=== PATIENT | female | born 1980 | race Caucasian/White ===

== ENCOUNTER 2019-03-11 18:27 | Emergency (ER) | payer OTHER ==
[~2019-03-11] VITALS: Ht 170.2 cm; Wt 90.7 kg
[2019-03-11] MEDS ORDERED: ATIVAN0.5 M1 PO (18:39)
[2019-03-11] MEDS ORDERED: NEURONTIN300 MG PO (18:39)
[2019-03-11] MEDS ORDERED: COZAAR 25 MG TA25 M1 PO (18:39)
[2019-03-11 19:10] LABS: ABSOLUTE BASOPHILS 0.1 thou/uL (0.0-0.2); ABSOLUTE EOSINOPHILS 0.2 thou/uL (0.0-0.7); ABSOLUTE LYMPHOCYTES 3.2 thou/uL (0.8-5.3); ABSOLUTE MONOCYTES 0.6 thou/uL (0.0-1.2); BASOPHILS 0.7 %; EOSINOPHILS 1.9 %; HEMATOCRIT 38.2 % (37.0-47.0); MCH 29.4 pg (26.0-34.0); MCV 86.6 fL (80.0-100.0); MONOCYTES 5.6 %; MPV 8.7 fl. (7.2-11.1); NUCLEATED RBCS 0 /100WBC; PLATELET COUNT* 313 thou/uL (150-400); POLYS 62.8 %; RBC 4.41 mil/uL (4.20-5.00); RDW-CV 13.5 % (10.5-14.5); WBC 11.2 thou/uL (4.0-11.0)
[2019-03-11 19:17] LABS: CALCIUM 8.9 mg/dL (8.5-10.1); CREATININE 1.3 mg/dL (0.6-1.3); POTASSIUM 3.9 mmol/L (3.5-5.1)
[2019-03-11 19:21] LABS: ALBUMIN 3.9 g/dL (3.4-5.0); TOTAL BILIRUBIN 0.2 mg/dL (<0.1-1.0); TOTAL PROTEIN 7.8 g/dL (6.4-8.2)
[2019-03-11] MEDS ORDERED: DOXYCYCLINE 10100 MG PO (20:03)
[2019-03-11 20:45] LABS: URINE BILIRUBIN NEGATIVE (Negative); URINE BLOOD NEGATIVE (Negative); URINE CLARITY CLEAR; URINE COLOR YELLOW; URINE GLUCOSE-RANDOM NEGATIVE (Negative); URINE KETONES NEGATIVE (Negative); URINE LEUKOCYTES-REFLEX NEGATIVE (Negative); URINE NITRITE-REFLEX NEGATIVE (Negative); URINE PROTEIN NEGATIVE (Negative); URINE SPECIFIC GRAVITY <= 1.005 (1.005-1.030); URINE UROBILINOGEN 0.2 E.U./dl (0.2-1.0)
[2019-03-11 21:15] VITALS: BP 163/95
--- NOTE | 2019-03-12 12:50 | EKG ---
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
== END 2019-03-11 21:15 | disposition home or self-care (01) ==
LOC: M.ERS 18:27
PROVIDERS: Nurse Practitioner Family
DX: R19.7 Diarrhea, unspecified (principal); J32.9 Chronic sinusitis, unspecified; I10 Essential (primary) hypertension; Z88.1 Allergy status to other antibiotic agents; Z88.2 Allergy status to sulfonamides

== ENCOUNTER 2021-01-25 08:47 | Inpatient (IN) | payer OTHER, MEDICAID ==
[~2021-01-25] VITALS: Ht 170.2 cm; Wt 90.7 kg
[~2021-01-25 08:47] MED LIST: ATIVAN0.5 M1 PO; COZAAR 25 MG TA25 M1 PO; DOXYCYCLINE 10100 MG PO; NEURONTIN300 MG PO
[2021-01-25 08:52] VITALS: BP 136/65
[2021-01-25] MEDS ORDERED: CRESTOR5 MG PO (08:55)
[2021-01-25] MEDS ORDERED: LOSARTAN-HCTZ1 EAC3 PO (08:55)
[2021-01-25 09:26] LABS: ABSOLUTE LYMPHOCYTES 1.4 thou/uL (0.8-5.3); ABSOLUTE NEUTROPHILS 4.6 thou/uL (1.6-8.1); HEMOGLOBIN 11.3 gm/dL (12.0-15.0); NUCLEATED RBCS 0 /100WBC; RDW-CV 14.4 % (10.5-14.5); WBC 6.4 thou/uL (4.0-11.0)
[2021-01-25 09:28] LABS: ABSOLUTE MONOCYTES 0.4 thou/uL (0.0-1.2); BASOPHILS 0.2 %; EOSINOPHILS 0.1 %; HEMATOCRIT 32.3 % (37.0-47.0); LYMPHOCYTES 22.3 %; MCH 29.6 pg (26.0-34.0); MCV 84.6 fL (80.0-100.0); MONOCYTES 5.8 %; MPV 8.6 fl. (7.2-11.1); PLATELET COUNT* 252 thou/uL (150-400); POLYS 71.6 %; RBC 3.82 mil/uL (4.20-5.00)
[2021-01-25 09:40] LABS: CREATININE 1.1 mg/dL (0.6-1.3); POTASSIUM 3.1 mmol/L (3.5-5.1)
[2021-01-25 09:56] LABS: TOTAL BILIRUBIN 0.8 mg/dL (<0.1-1.0); TOTAL PROTEIN 7.3 g/dL (6.4-8.2)
[2021-01-25 14:20] VITALS: BP 134/70
--- NOTE | 2021-01-25 15:31 | EKG ---
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 : 1980 Requested By: Joe Clark Order Number: [id number] MD: Rolf Borrero Measurements Intervals [place] Rate: 95 P: 35 IA: 148 QRS: 14 QRSD: 94 T: 6 QT: 373 QTc: 469 Interpretive Statements Sinus rhythm Borderline T wave abnormalities Baseline wander in lead(s) II Compared to ECG 03/11/2019 19:00:23 T-wave abnormality now present Electronically Signed On 01-25-2021 15:31:06 GAMING DEALER by Rolf Borrero [email or web address] <ELECTRONICALLY SIGNED> By: Rolf Borrero MD, [facility] 01/25/21 1531 Rolf Borrero MD, [facility] /EPI
[2021-01-25 18:24] VITALS: BP 145/69
[2021-01-25 22:00] VITALS: BP 117/75
[2021-01-26 02:15] VITALS: BP 124/72
[2021-01-26 03:56] LABS: ALBUMIN 2.6 g/dL (3.4-5.0); CALCIUM 7.7 mg/dL (8.5-10.1); CREATININE 1.1 mg/dL (0.6-1.3); MAGNESIUM 2.2 mg/dL (1.8-2.4); POTASSIUM 3.5 mmol/L (3.5-5.1); TOTAL BILIRUBIN 0.7 mg/dL (<0.1-1.0); TOTAL PROTEIN 6.9 g/dL (6.4-8.2)
[2021-01-26 05:32] LABS: HEMATOCRIT 30.8 % (37.0-47.0); HEMOGLOBIN 10.7 gm/dL (12.0-15.0); MCH 29.5 pg (26.0-34.0); MCHC 34.6 g/dL (28.0-37.0); MCV 85.2 fL (80.0-100.0); MPV 9.1 fl. (7.2-11.1); RBC 3.62 mil/uL (4.20-5.00); WBC 7.2 thou/uL (4.0-11.0)
[2021-01-26 06:25] VITALS: BP 125/65
[2021-01-26 07:04] LABS: INFLUENZA A ANTIGEN Negative (Negative); INFLUENZA B ANTIGEN Negative (Negative)
[2021-01-26 10:15] VITALS: BP 113/70
[2021-01-26 11:24] LABS: PCO2 33.9 mmHg (35.0-45.0); PO2 73.5 mmHg (75.0-100.0); pH 7.515 (7.340-7.450)
[2021-01-26 13:50] VITALS: BP 126/69
[2021-01-26 15:35] VITALS: BP 143/78
[2021-01-26 20:00] VITALS: BP 117/68
[2021-01-27] VITALS (7 sets, daily range): BP systolic 122–137; BP diastolic 63–83
[2021-01-27 05:20] LABS: HEMATOCRIT 31.4 % (37.0-47.0); HEMOGLOBIN 10.9 gm/dL (12.0-15.0); MCH 29.7 pg (26.0-34.0); MCHC 34.8 g/dL (28.0-37.0); MCV 85.2 fL (80.0-100.0); MPV 8.7 fl. (7.2-11.1); RBC 3.69 mil/uL (4.20-5.00); RDW-CV 14.1 % (10.5-14.5); WBC 9.8 thou/uL (4.0-11.0)
[2021-01-27 05:38] LABS: ALBUMIN 2.8 g/dL (3.4-5.0); MAGNESIUM 2.5 mg/dL (1.8-2.4); POTASSIUM 3.7 mmol/L (3.5-5.1); TOTAL BILIRUBIN 0.6 mg/dL (<0.1-1.0); TOTAL PROTEIN 6.9 g/dL (6.4-8.2)
--- NOTE | 2021-01-27 22:17 | CON ---
[address] [address] CONSULTATION Name: CARLENE GIBBS Room: [address] IN [facility]#: [id number] Admission: 01/25/21 Attend Phys: Solange Sheppard MD Discharge: Date of : 78 Report #: [id number] THIS REPORT FOR: cc: Pancho Whalen Ghaison F. DO Pervez, Adeel MD ~ DATE OF CONSULTATION: 01/27/2021 REQUESTING PHYSICIAN: Solange Sheppard MD INDICATION FOR CONSULTATION: Acute hypoxemic respiratory failure secondary to COVID-19. HISTORY OF PRESENT ILLNESS: A 40-year-old female. She is a lifetime nonsmoker. She only recently received the first dose of her COVID-19 vaccine. The patient is now here with about 1 week of respiratory illness. She has been short of breath. She has been coughing. There is not much sputum. She has had significant nasal congestion. She has had headaches. She has had ear pain. She does have some swelling of lower extremities. She reports poor appetite and says that she has been feeling weak. The patient currently is severely hypoxemic, requiring 100% FiO2 with a heated high flow nasal cannula to maintain O2 saturation in the low 90s. Upon arrival 2 days ago, she was maintaining O2 saturation in the low 90s with 4 liters of oxygen in place. There has been a progressive increase in her oxygen need since then. REVIEW OF SYSTEMS: The patient's review of systems for 12 points is negative except as mentioned above. PAST MEDICAL HISTORY: Hypertension, low back surgery. The patient states that she has an intrauterine contraceptive device in place. SOCIAL HISTORY: Lifetime nonsmoker. No known history of heavy alcohol use or illegal drug use. CURRENT MEDICATIONS: List in [employer] reviewed. HOME MEDICATIONS: List in [employer] reviewed. ALLERGIES: AZITHROMYCIN AND SULFONAMIDE ANTIBIOTICS. FAMILY HISTORY: There is no pertinent family history. PHYSICAL EXAMINATION: [place] [address] CONSULTATION Name: CARLENE GIBBS Room: [address]#: [id number] Admission: 01/25/21 Attend Phys: Solange Sheppard MD Discharge: Date of : 78 Report #: [id number] GENERAL: She is alert, awake and oriented, is somewhat anxious. VITAL SIGNS: Has a pulse of 74 and a blood pressure of 137/67; however, she is requiring 100% FiO2 with 55 liters of heated high flow nasal cannula to maintain O2 saturation around 92; respiratory rate has been varying between 17 and 24; she is afebrile with a temperature of 36.3. HEENT: Head is normocephalic and atraumatic. NECK: Does not show raised JVP, asymmetry, mass or lymph nodes. CHEST: Symmetrical expansion on inspection and palpation. On auscultation, breath sounds are bilaterally equal. I do not hear any added sounds. HEART: Regular. There is no murmur. ABDOMEN: Soft and nontender. EXTREMITIES: Lower extremities, 1+ edema, no calf tenderness. SKIN: Dry and intact. NEUROLOGICAL: Moves all extremities bilaterally equally and spontaneously with no focal deficit identified. IMAGING STUDIES: The patient's chest x-rays are reviewed; in summary, they are consistent with ARDS secondary to COVID-19. CT of chest did not show any pulmonary emboli; I reviewed both the films as well as report; there are infiltrates consistent with COVID-19. Venous Dopplers are negative. LABORATORY DATA: The patient's lab work is in [employer] and this is also reviewed. ASSESSMENT AND PLAN: 1. Acute hypoxemic respiratory failure/ARDS secondary to COVID-19. The patient states that she has to sleep on her back and is not comfortable on her sides or prone position. Therefore, I instructed her that she should keep her head elevated when she is sleeping. I recommended that she should wear a BiPAP while asleep for now. The patient, however, declined the same. We will continue to titrate oxygen. 2. COVID-19. Agree with dexamethasone at current dose at 10 b.i.d. considering significant hypoxemia, also agree with remdesivir as currently ordered. I recommend that we should go ahead and start Actemra. Unfortunately, Actemra is not available. I do not feel strongly either way regarding administering or holding off on convalescent plasma. 3. Fluid overload. On my exam, she appears to be fluid overloaded. I will go ahead and give her 60 mg of Lasix now. We would consider giving her more Lasix tomorrow. I recommend that we also do a 2D echo. 4. Pulmonary infiltrates. I also agree with covering for secondary bacterial infections. She is currently on doxycycline as well as ceftriaxone. She is 40 years old and female and doxycycline is contraindicated in . Therefore, I specifically did ask her about this. She states that she has an intrauterine contraceptive device in place; and therefore, she does not feel [address] [place] [address] CONSULTATION Name: CARLENE GIBBS Room: [address] IN [place]#: [id number] Admission: 01/25/21 Attend Phys: Solange Sheppard MD Discharge: Date of : 78 Report #: [id number] that it is likely that she will be . I have still ordered a urine test for the sake of completion. Other cultures and serologies are also ordered. 5. Deep vein thrombosis prophylaxis. I see that Lovenox 60 at bedtime is ordered, but not administered for the last 2 days. I will investigate this further. I do recommend giving her deep venous thrombosis prophylaxis unless there is a contraindication. In case the patient is refusing Lovenox, then I would recommend giving her oral low-dose anticoagulation instead. 6. Possible component of bronchospasm. We will continue DuoNeb, frequency adjusted. 7. Hyperglycemia. Agree with insulin sliding scale. 8. Clostridium difficile prophylaxis, Lactinex. 9. Gastrointestinal prophylaxis, Protonix. The patient is critically ill at this time. Total time spent providing critical care to this patient today is 37 minutes. <ELECTRONICALLY SIGNED> By: Juan Bell MD 01/27/21 2217 1450 1938Arobert Bell MD /nt
[2021-01-28 04:03] LABS: HEMATOCRIT 30.1 % (37.0-47.0); HEMOGLOBIN 10.1 gm/dL (12.0-15.0); MCH 29.1 pg (26.0-34.0); MCHC 33.7 g/dL (28.0-37.0); MCV 86.3 fL (80.0-100.0); MPV 8.1 fl. (7.2-11.1); NUCLEATED RBCS 0 /100WBC; PLATELET COUNT* 415 thou/uL (150-400); RBC 3.49 mil/uL (4.20-5.00); RDW-CV 14.4 % (10.5-14.5); WBC 13.5 thou/uL (4.0-11.0)
[2021-01-28 04:24] LABS: ALBUMIN 2.6 g/dL (3.4-5.0); CALCIUM 7.8 mg/dL (8.5-10.1); CREATININE 1.2 mg/dL (0.6-1.3); MAGNESIUM 2.5 mg/dL (1.8-2.4); POTASSIUM 4.3 mmol/L (3.5-5.1); TOTAL BILIRUBIN 0.4 mg/dL (<0.1-1.0); TOTAL PROTEIN 6.3 g/dL (6.4-8.2)
[2021-01-28 05:51] VITALS: BP 136/82
[2021-01-28 06:30] LABS: ABSOLUTE LYMPHOCYTES 1.6 thou/uL (0.8-5.3); ABSOLUTE MONOCYTES 1.2 thou/uL (0.0-1.2); ABSOLUTE NEUTROPHILS 10.7 thou/uL (1.6-8.1); ATYPICAL LYMPHS 1 %
[2021-01-28 06:32] LABS: ANISOCYTOSIS 1+; OVALOCYTES 1+; PLATELET ESTIMATE INCREASED
[2021-01-28 07:08] LABS: GLYCOHEMOGLOBIN (HGB A1C) 6.1 % (4.8-5.6)
[2021-01-28 08:30] VITALS: BP 132/63
--- NOTE | 2021-01-28 11:37 | 2DMMODE ---
[place] [address] 2 D/M-MODE ECHOCARDIOGRAM Name: CARLENE GIBBS Nicolasa Room: [address] IN [facility]#: [id number] Admission: 01/25/21 Attend Phys: Solange Sheppard, Discharge: Date of : 78 Date of Service: 01/28/21 1137 Report #: [id number] THIS REPORT FOR: cc: Pancho Whalen Ghaison F. DO Holkins, John M. MD [facility] ~ APPROVED REPORT Study performed: 01/28/2021 09:56:56 EXAM: Comprehensive 2D, Doppler, and color-flow Echocardiogram Patient Location: In-Patient Room #: 108 Status: routine BSA: 2.02 HR: 78 bpm BP: 136/82 mmHg Rhythm: NSR Other Information Study Quality: Good Indications Dyspnea 2D Dimensions IVSd: 10.97 (7-11mm) LVOT Diam: 20.80 (18-24mm) LVDd: 44.35 mm PWd: 10.44 (7-11mm) Ascending Ao: 28.07 (22-36mm) LVDs: 27.92 (25-40mm) Aortic Root: 30.14 mm Volumes Left Atrial Volume (Systole) LA ESV Index: 22.30 mL/m2 Aortic Valve AoV Peak Dileep.: 1.55 m/s AO Peak Gr.: 9.64 mmHg LVOT Max P.81 mmHg AO Mean Gr.: 5.40 mmHg LVOT Mean P.39 mmHg LVOT Max V: 1.10 m/s AO V2 VTI: 30.94 cm LVOT Mean V: 0.71 m/s ARRON (VTI): 2.71 cm2 LVOT V1 VTI: 24.65 [place] [address] 2 D/M-MODE ECHOCARDIOGRAM Name: CARLENE GIBBS Room: [address] IN [facility]#: [id number] Admission: 01/25/21 Attend Phys: Solange Sheppard, Discharge: Date of : 78 Date of Service: 01/28/21 1137 Report #: [id number] Mitral Valve E/A Ratio: 1.41 MV Decel. Time: 203.05 ms MV E Max Dileep.: 1.11 m/s MV PHT: 58.88 ms MVA (PHT): 3.74 cm2 TDI E/Lateral E': 6.53 E/Medial E': 8.54 Medial E' Dileep.: 0.13 m/s Lateral E' Dileep.: 0.17 m/s Pulmonary Valve PV Peak Dileep.: 1.30 m/s PV Peak Gr.: 6.71 mmHg Left Ventricle The left ventricle is normal size. There is normal LV segmental wall motion. There is normal left ventricular wall thickness. Left ventricular systolic function is normal. The left ventricular ejection fraction is within the normal range. LVEF is 55-60%. The left ventricular diastolic function is normal. Right Ventricle The right ventricle is normal size. The right ventricular systolic function is normal. Atria The left atrium size is normal. The right atrium size is normal. Aortic Valve The aortic valve is normal in structure. No aortic regurgitation is present. There is no aortic valvular stenosis. Mitral Valve The mitral valve is normal in structure. Trace mitral regurgitation. No evidence of mitral valve stenosis. Tricuspid Valve The tricuspid valve is normal in structure. Trace tricuspid regurgitation. Unable to assess PA pressure. Pulmonic Valve The pulmonary valve is normal in structure. There is no pulmonic [place] [address] 2 D/M-MODE ECHOCARDIOGRAM Name: CARLENE GIBBS Room: [address]#: [id number] Admission: 01/25/21 Attend Phys: Solange Sheppard, Discharge: Date of : 78 Date of Service: 01/28/21 1137 Report #: [id number] Great Vessels The aortic root is normal in size. IVC is normal in size and collapses >50% with inspiration. Pericardium There is no pericardial effusion. <Conclusion> The left ventricle is normal size. There is normal left ventricular wall thickness. Left ventricular systolic function is normal. The left ventricular ejection fraction is within the normal range. LVEF is 55-60%. The left ventricular diastolic function is normal. The right ventricle is normal size. The left atrium size is normal. The aortic valve is normal in structure. The mitral valve is normal in structure. Trace mitral regurgitation. The tricuspid valve is normal in structure. IVC is normal in size and collapses >50% with inspiration. There is no pericardial effusion. There is normal LV segmental wall motion. <ELECTRONICALLY SIGNED> By: Rolf Borrero MD, FACC 01/28/21 1137 1137 1137 Rolf Borrero MD, FACC /INF
[2021-01-28 16:00] VITALS: BP 131/77
[2021-01-28 20:10] VITALS: BP 128/74
[2021-01-29 01:26] VITALS: BP 115/75
[2021-01-29 05:22] LABS: HEMATOCRIT 33.2 % (37.0-47.0); HEMOGLOBIN 11.2 gm/dL (12.0-15.0); MCH 29.3 pg (26.0-34.0); MCHC 33.6 g/dL (28.0-37.0); MCV 87.1 fL (80.0-100.0); MPV 8.4 fl. (7.2-11.1); RBC 3.81 mil/uL (4.20-5.00); RDW-CV 14.5 % (10.5-14.5); WBC 18.9 thou/uL (4.0-11.0)
[2021-01-29 05:34] LABS: CREATININE 1.1 mg/dL (0.6-1.3); POTASSIUM 4.3 mmol/L (3.5-5.1)
[2021-01-29 05:45] VITALS: BP 120/72
[2021-01-29 10:09] VITALS: BP 121/68
[2021-01-29 16:00] VITALS: BP 135/81
[2021-01-29 19:40] VITALS: BP 140/79
[2021-01-30 00:29] VITALS: BP 125/78
[2021-01-30 04:26] VITALS: BP 128/87
[2021-01-30 06:18] LABS: HEMOGLOBIN 11.3 gm/dL (12.0-15.0); MCH 29.6 pg (26.0-34.0); MCHC 34.2 g/dL (28.0-37.0); MCV 86.5 fL (80.0-100.0); MPV 8.2 fl. (7.2-11.1); NUCLEATED RBCS 0 /100WBC; PLATELET COUNT* 455 thou/uL (150-400); RBC 3.81 mil/uL (4.20-5.00); RDW-CV 14.3 % (10.5-14.5); WBC 20.4 thou/uL (4.0-11.0)
[2021-01-30 06:27] LABS: ALBUMIN 2.8 g/dL (3.4-5.0); CALCIUM 8.1 mg/dL (8.5-10.1); CREATININE 1.1 mg/dL (0.6-1.3); MAGNESIUM 2.5 mg/dL (1.8-2.4); POTASSIUM 4.1 mmol/L (3.5-5.1); TOTAL BILIRUBIN 0.6 mg/dL (<0.1-1.0); TOTAL PROTEIN 6.5 g/dL (6.4-8.2)
[2021-01-30 07:26] LABS: ABSOLUTE LYMPHOCYTES 5.3 thou/uL (0.8-5.3); ABSOLUTE MONOCYTES 0.6 thou/uL (0.0-1.2); ABSOLUTE NEUTROPHILS 14.5 thou/uL (1.6-8.1); METAMYELOCYTES 4 %; MYELOCYTES 1 %; PROMYELOCYTES 1 %
[2021-01-30 07:27] LABS: PLATELET ESTIMATE ADEQUATE
[2021-01-30 07:53] VITALS: BP 137/77
[2021-01-30] MEDS ORDERED: TESSALON PERLE100 MG PO (11:08)
[2021-01-30] MEDS ORDERED: PREDNISONE 10 M10 MG PO (11:11)
[2021-01-30] MEDS ORDERED: LEVOFLOXACIN500 MG PO (11:11)
[2021-01-30] MEDS ORDERED: PROAIR HFA8.5 GM INH (11:11)
[2021-01-30 12:00] VITALS: BP 128/71
[2021-01-30 13:13] LABS: ABSOLUTE LYMPHOCYTES 4.2 thou/uL (0.8-5.3); ABSOLUTE NEUTROPHILS 14.2 thou/uL (1.6-8.1); BASOPHILS 0.2 %; EOSINOPHILS 0.2 %; HEMATOCRIT 35.8 % (37.0-47.0); HEMOGLOBIN 12.1 gm/dL (12.0-15.0); LYMPHOCYTES 21.5 %; MCH 29.2 pg (26.0-34.0); MCHC 33.7 g/dL (28.0-37.0); MCV 86.6 fL (80.0-100.0); MPV 8.3 fl. (7.2-11.1); NUCLEATED RBCS 0 /100WBC; PLATELET COUNT* 502 thou/uL (150-400); POLYS 73.1 %; RBC 4.13 mil/uL (4.20-5.00); RDW-CV 14.5 % (10.5-14.5); WBC 19.4 thou/uL (4.0-11.0)
[2021-01-30 16:00] VITALS: BP 130/88
[2021-01-30 20:10] VITALS: BP 13/85
[2021-01-31] VITALS (7 sets, daily range): BP systolic 108–135; BP diastolic 54–74
== END 2021-01-31 20:25 | disposition home or self-care (01) | DRG 177 ==
LOC: M.ERS 08:47 → M.ORTHSURG 10:33 → M.TBA-ER 10:33 → M.ORTHSURG 01-26 14:13
PROVIDERS: Family Medicine; Internal Medicine; Internal Medicine Critical Care Medicine; ADMIT Internal Medicine; ATTEND Internal Medicine
PROC: XW033E5 Introduction of Remdesivir Anti-infective into Peripheral Vein, Percutaneous Approach, New Technology Group 5 (ICD-10-PCS; principal; 2021-01-25)
PROC: 5A0945A Assistance with Respiratory Ventilation, 24-96 Consecutive Hours, High Flow/Velocity Cannula (ICD-10-PCS; 2021-01-26)
PROC: 5A0935A Assistance with Respiratory Ventilation, Less than 24 Consecutive Hours, High Flow/Velocity Cannula (ICD-10-PCS; 2021-01-28)
PROC: 5A0935A Assistance with Respiratory Ventilation, Less than 24 Consecutive Hours, High Flow/Velocity Cannula (ICD-10-PCS; 2021-01-29)
PROC: 5A0935A Assistance with Respiratory Ventilation, Less than 24 Consecutive Hours, High Flow/Velocity Cannula (ICD-10-PCS; 2021-01-30)
PROC: 5A0935A Assistance with Respiratory Ventilation, Less than 24 Consecutive Hours, High Flow/Velocity Cannula (ICD-10-PCS; 2021-01-31)
DX: U07.1 COVID-19 (principal); J80 Acute respiratory distress syndrome; J12.82 Pneumonia due to coronavirus disease 2019; I10 Essential (primary) hypertension; E87.70 Fluid overload, unspecified; R73.9 Hyperglycemia, unspecified; Z88.1 Allergy status to other antibiotic agents; Z88.2 Allergy status to sulfonamides